=== PATIENT | male | born 1965 | race Caucasian/White ===

== ENCOUNTER → 2018-08-21 08:53 | Outpatient (CLI) | payer OTHER, SELFPAY ==
--- NOTE | 2018-08-21 | DI.US.S_ITS ---
PROCEDURE: US ABDOMEN LIMITED INDICATIONS: HERNIA TECHNIQUE: Real-time focused scanning was performed of the inguinal region, with image documentation. COMPARISON: None. FINDINGS: There is a right inguinal hernia extending medially from the inguinal canal towards the midline, inferior to the bladder. The area of hernia measures up to 3.7 cm in diameter at the neck and 5.2 cm in diameter more inferiorly towards the midline. Bowel within the hernia is identified as peristalsing structure. IMPRESSION: Groin herniation extends inferiorly and medially on the right through a body wall defect measuring an estimated 3.7 cm in diameter superiorly and the diameter of the hernia at its inferior aspect near the midline beneath the bladder area superficially is 5.2 cm. Edema or abnormal fluid in this area along the hernia is not found. Peristalsing bowel within the hernia appears present. Additional anatomic detail could be obtained utilizing CT scan if clinically warranted. Dictated by: Maynor Warner M.D. on 08/21/2018 at 11:42 Approved by: Maynor Warner M.D. on 08/21/2018 at 11:44
== END ==
PROVIDERS: Visit Provider Physician Assistant
DX: K40.90 Unilateral inguinal hernia, without obstruction or gangrene, not specified as recurrent (principal)
CPT/HCPCS: 76705

== ENCOUNTER 2018-11-07 07:20 | Day surgery (SDC) | payer OTHER, SELFPAY ==
[2018-10-17 07:51] VITALS: BMI 28.5
[2018-11-07] VITALS (9 sets, daily range): BP systolic 138–177; BP diastolic 100–112; PULSE 84–99; RESP 10–18; TEMP 36.3–36.9; O2SAT 94–98; BMI 27.5
[2018-11-07] MEDS: LACTATED RINGERS 1,000 ML 42 ML IV (07:57)
--- NOTE | 2018-11-07 08:36 | PM.PREOP ---
Pre-operative Note Interval Note History & Physical reviewed/Exam performed by Physician: Yes Changes to H&P: No H&P completed within 30 days and has changed as indicated here:: See history and physical from 10/16/2018
[2018-11-07] MEDS: CEFAZOLIN 2 GM/100 ML FROZ.PIGGY IV (09:06)
--- NOTE | 2018-11-07 09:15 | SUR.OPER ---
Supine on padded OR bed, head on pillow, arms secured on padded arm boards at <90 degrees abduction, legs uncrossed, safety belt at thigh, tape over blanket over lower legs.
[2018-11-07] MEDS: BUPIVACAINE 0.5% (PF) VIAL 30 ML INJ (09:28)
--- NOTE | 2018-11-07 11:07 | P.OP_ITS ---
Operative Date/Time/Diagnoses Date of procedure: 11/07/18 Time of procedure: 11:00 Pre-op diagnosis: Incarcerated umbilical hernia. Reducible right inguinal hernia. Post-op diagnosis: same (Indirect right inguinal hernia containing a large amount of small bowel extending into the scrotum) Procedure & Clinicians Procedure: Repair of umbilical hernia. Repair of right inguinal hernia. Same procedure as scheduled: Yes Indications: Symptomatic hernias Surgeon: Aric Edmonds Click Yes if Unassisted: Yes Anesthesia Type: General Operative Notes Findings: See postop diagnosis Closure Type: primary Specimen(s): none sent Prosthetic devices, grafts, tissues, transplants, or devices: Mesh in the right groin. Mesh not used on the umbilicus. Estimated Blood Loss (mL): 10 Blood products transfused: none Procedure in detail: Patient was placed supine on the operating room table underwent general LMA anesthesia. He was prepped and draped in the usual fashion. Curvilinear incision was made under the umbilicus and carried down the level of the fascia. The fascia was cleared of sac and peritoneum circumferentially and the sac was removed. The hernia contained fat which was reduced. I closed the small fascial defect with interrupted figure of 8 0 Tycron. The umbilicus was tacked down to the fascia with an interrupted 3 0 Vicryl. The subcu was closed with interrupted 3 0 Vicryl. The skin was closed running 4 0 Vicryl subcuticular stitch. Attention was turned to the right groin. Local anesthetic was infiltrated and transverse incision made overlying the internal ring. Was carried down level of the external oblique. The external oblique was opened parallel with its fibers through the external ring. The cord structures were elevated and a [place] placed around them. The cremaster was opened proximally as was the indirect sac. There was a large amount of small bowel within the sac and this was reduced into the peritoneal cavity. I the sac from the cord structures proximally and also removed a lipoma of the cord. With I then transected the sac leaving a portion in the scrotum. Dissection was carried proximally and a pursestring of 200 silk was placed at the level the deep epigastric vessels. It was tied and then tie also placed just beyond that. The excess portion of this proximal sac was transected and removed. The stump was allowed to retract. A large plug was placed in the defect created by this large hernia. Was tacked into place with interrupted Ethibond sutures. The cremaster was closed over it. This was done with a 3 0 Vicryl. The floor was somewhat weakened. A patch was placed across the floor and tacked at the pubic tubercle, the posterior lamella the anterior rectus sheath, the ileal inguinal ligament and superior and lateral cord. The opening for the cord structures were enlarged to prevent any constriction. The subcu was closed with interrupted 4 Vicryl and skin was closed running for Vicryl subcuticular stitch. Mastisol and Steri-Strips were then placed on both incisions. Dressings were applied the patient was awakened and taken to the recovery area extubated and in good condition. Complications: none Condition: stable Disposition: PACU
[2018-11-07] MEDS: ONDANSETRON 4 MG/2 ML INJ IV (11:10)
[2018-11-07] MEDS: fentaNYL 100 MCG/2 ML INJ 50 MCG IV ×2 (11:10→11:19)
[2018-11-07] MEDS: OXYCODONE/ACETAMINOPHEN 5/325 TABLET 1 TAB PO ×2 (11:30→11:55)
--- NOTE | 2018-11-07 12:24 | SUR.PHASEII ---
winifred's (2) from surgical sites observed to be c/d/i.
== END 2018-11-07 12:58 | disposition home or self-care (01) ==
PROVIDERS: PCP Physician Assistant; Visit Provider Specialist
PROC: (CPT 49505; principal; 2018-11-07 08:45)
PROC: (CPT 49505; 2018-11-07 08:45)
DX: K40.90 Unilateral inguinal hernia, without obstruction or gangrene, not specified as recurrent (principal); K42.0 Umbilical hernia with obstruction, without gangrene; D17.6 Benign lipomatous neoplasm of spermatic cord
CPT/HCPCS: 49505; 49585; C1781; J0690; J1100; J1885; J2250; J2405; J2704; J3010